=== PATIENT | male | born 1960 | race American Indian/Alaskan Native ===

== ENCOUNTER 2017-03-21 00:55 | Inpatient (IN) | payer MEDICAID, OTHER ==
[2017-03-21 00:56] VITALS: BMI 26.8
--- NOTE | 2017-03-21 01:20 | ED PDOC ---
Psych Transfer Clearance - Clearance Statement Clearance Statement: Reviewed vital signs, lab results and transfer papers. Patient clinically stable for psychiatric admission.
[2017-03-21 01:22] VITALS: O2SAT 98
[2017-03-21] MEDS ORDERED: Alum-Mag Hydrox-Simethicone Susp (30 mL) PO PRN (01:33)
[2017-03-21] MEDS ORDERED: Magnesium Hydroxide Susp 30 ml UD PO PRN (01:33)
[2017-03-21] MEDS ORDERED: DiphenhydrAMINE 50 mg/ml Inj IM PRN (01:33)
[2017-03-21 08:11] LABS: CHOLESTEROL 145 mg/dL (0-199)
--- NOTE | 2017-03-21 10:30 | PCM.PSYCH ---
Initial Psychiatric Evaluation - Initial Psychiatric Evaluation Type of Admission: Voluntary Legal Status: Capacity Chief Complaint (in patient's own words): i've been off my meds Patient's Reaction to Hospitalization: cooperative History of Present Illness and Precipitating Events: 56 yo male with history of heroin, alcohol, cocaine dependence and bipolar disorder. pt presented at [facility] seeking admission for suicidal thoughts in context of ongoing substance abuse. he reports he has not had his medications for over a week- with the exception of zoloft and doxepin. he states he has been feeling impulsive, labile, "up and down" he is with racing thoughts, poor sleep and pressured speech. he states he started smoking cocaine , using 1 bag of heroin iv and then feeling like he's "crashing"- feeling hopeless, having a sense of foreboding and feeling suicidal. he had thoughts to overdose on heroin. he states he has a history of "8 overdoses" he states he does not want to . pt reports he has been dx with prostate cancer about a year ago and never took his treatment. he cites this as a stressor. states he has 3 children and was 25 years and was 2 years ago. 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 his mother is a nurse and is supportive. pt c/o chills, cramps, diarrhea, sweats and shakes now. mild nausea. Current Medications: Active Medications Generic Name Dose Route Start Last Admin Trade Name Freq PRN Reason Stop Dose Admin Acetaminophen 650 mg 03/21/17 01:33 Tylenol 325mg Tab PO Q4 PRN Pain, moderate (4-7) Al Hydrox/Mg Hydrox/Simethicone 30 ml 03/21/17 01:33 Maalox Plus 30 Ml PO Q4 PRN Dyspepsia Clonidine HCl 0.1 mg 03/21/17 09:00 03/21/17 10:15 Catapres PO 03/24/17 09:01 0.1 mg Q8 JE Administration Cyclobenzaprine HCl 10 mg 03/21/17 10:17 Flexeril PO TID PRN Muscle spasm Diphenhydramine HCl 50 mg 03/21/17 01:33 Benadryl IM Q6 PRN Extrapyramidal S/S Unable PO Diphenhydramine HCl 50 mg 03/21/17 01:33 Benadryl PO Q6 PRN Extrapyramidal Symptoms Doxepin HCl 25 mg 03/21/17 22:00 Sinequan PO HS [facility] Folic Acid 1 mg 03/21/17 10:30 Folic Acid PO DAILY [facility] Gabapentin 300 mg 03/21/17 13:00 Neurontin PO TID [facility] Haloperidol 5 mg 03/21/17 01:33 Haldol PO Q4 PRN Agitation Haloperidol Lactate 5 mg 03/21/17 01:33 Haldol IM Q4 PRN Agitation, Unable to Take PO Ibuprofen 800 mg 03/21/17 02:48 Motrin Tab PO 03/24/17 02:48 Q6 PRN Pain, Mild (1-3) Loperamide HCl 2 mg 03/21/17 02:48 Imodium PO Q4 PRN After Loose Bowel Movement Lorazepam 2 mg 03/21/17 01:33 Ativan IM Q4 PRN Anxiety/Agitation,Unable PO Lorazepam 1 mg 03/21/17 01:33 Ativan PO Q4 PRN Anxiety/Agitation Lorazepam 1 mg 03/21/17 17:00 Ativan PO BIDHS [facility] Magnesium Hydroxide 30 ml 03/21/17 01:33 Milk Of Magnesia PO HS PRN Constipation Multivitamins/Minerals 1 tab 03/21/17 10:15 Therapeutic-M Tab PO DAILY [facility] Quetiapine Fumarate 200 mg 03/21/17 22:00 Seroquel PO HS [facility] Sertraline HCl 25 mg 03/21/17 10:15 Zoloft PO DAILY [facility] Thiamine HCl 100 mg 03/21/17 10:30 Vitamin B1 Tab PO DAILY [facility] was taking zoloft 25mg daily, seroquel xr 400mg hs, neurontin 200mg tid and doxepin 75mg hs Past Psychiatric History - Past Psychiatric History Previous Treatment History: Inpatient Prior Professional Help: i've been in rehab many times- last two [facility]. Prior Psychiatric Treatment: [facility] 2014. has outpt providers in [facility] History of Abuse: denies History of ETOH/Drug Use: has been drinking 40ounces of beer + 3 airport bottles of vodka daily. has been using 1 bag of heroin iv. smoking crack dailiy. smokes around 3-4 cigarettes daily. denies other drug use currently. states he started using lsd when he was 11 years old. uds positive for opioids. neg for cocaine History of Family Illness: denies Pertinent Medical Hx (Current Medical&Sleep Prob, Allergies): Allergies Allergy/AdvReac Type Severity Reaction Status Date / Time carbamazepine [From Tegretol] Allergy Verified 03/20/17 17:13 Penicillins Allergy Verified 03/20/17 17:13 watermelon Allergy Verified 03/20/17 17:13 Albuterol Sulfate [Ventolin Hfa] 2 puff PO Q6 PRN 04/24/15 Budesonide/Formoterol Fumarate [Symbicort] 1 aer IH Q6 PRN 04/24/15 Doxepin [Sinequan] 10 mg PO DAILY 04/24/15 Gabapentin 600 mg PO QAM 04/24/15 Insulin Detemir [Levemir] 10 unit SC QAM 04/24/15 QUEtiapine [SEROquel XR] 200 mg PO HS 04/24/15 Gabapentin [Neurontin] 300 mg PO BID #0 cap 05/02/15 Gabapentin [Neurontin] 400 mg PO HS #0 cap 05/02/15 QUEtiapine [Seroquel XR] 400 mg PO HS #0 ter 05/02/15 Sertraline [Zoloft] 150 mg PO DAILY #0 tab 05/02/15 lamoTRIgine [Lamictal] 25 mg PO DAILY #0 tab 05/02/15 Divalproex [Depakote DR] 500 mg PO BID #0 tcp 05/15/15 Gabapentin [Neurontin] 300 mg PO BID #0 cap 05/15/15 Sertraline [Zoloft] 100 mg PO DAILY #0 tab 05/15/15 Sertraline [Zoloft] 100 mg PO DAILY #0 tab 05/15/15 states he has hep c that was treated. states he was dx with type 2 diabetes 2 years ago, but feels its better. he states he has prostate Cancer and has a doctor in [facility]. Review of Systems - Psychiatric Psychiatric: As Per [facility] Mental Status Examination - Personal Presentation Personal Presentation: Looks younger than stated age - Affect Affect: Broad - Motor Activity Motor Activity: Calm - Reliability in Providing Information Reliability in Providing Information: Good - Speech Speech: Other Additional comments: pressured - Mood Mood: Anxious, Euphoric - Formal Thought Process Formal Thought Process: No Impairment - Obsessions/Compulsions Obsessions: No Compulsions: No - Cognitive Functions Orientation: Person, Place, Situation Sensorium: Alert Attention/Concentration: Attentive Estimate of Intelligence: Average Judgement: Intact, as evidence by: Insight regarding need for hospitalization Memory: Recent intact, as evidence by: Ability to recall events of the day, Remote intact, as evidenced by: Abilit to recall sig. life events - Risk Risk: Suicidal (reports he wants to live, history of prior attempts. suicidal thoughts prior to admission), Withdrawal, Diminished functioning - Strength & Assets Inventory Strength & Assets Inventory: Intelligence, Family support - Limitations Limitations: Other (impulsive) DSM 5 DX - DSM 5 DSM 5 Diagnosis: bipolar disorder, mixed cocaine abuse opioid dependence alcohol dependence - Recommended/Plan of Treatment Treatment Recommendations and Plan of Treatment: admit to 3 for safety and observation gather collateral information provide supportive therapy adjust medications- restart home meds and titrate up. will start detox meds prn hospitalist consult - pt wants hiv testing, hx of diabetes, prostate ca disposition planning- t/c referral to inpt rehab Projected ELOS: 3-5 days Prognosis: fair - Smoking Cessation Smoking Cessation Initiated: No Reason for not providing: declines
[2017-03-21] MEDS: Multivitamin With Minerals Tab PO SCH (12:13)
--- NOTE | 2017-03-21 15:31 | CP.PCM.CON ---
History of Present Illness - History of Present Illness History of Present Illness: Hospitalist Consult H&P (Patient was seen and examined at 2:30 PM 03/21/17 [id number] with Psychiatry Nurse) 56 year old male who was admitted to the In-Patient Psychiatry Unit at [facility] for SI after taking cociane and heroin. Currently upon FULL ROS there is NO chest pain, NO palpitations, NO SOB/Cough/ Wheezing,NO dysphagia/odynophagia, NO abdominal pain, NO n/v/d/c, NO black/ bloody stools, NO burning/pain with urination, NO lightheadedness/dizziness, NO paresthesias, NO edema, NO new changes in vision/eye pain, NO new changes in hearing/ear pain PMHx: Cocaine Abuse, Heroin Abuse, Alcohol Abuse, Bipolar Disorder, Prostate CA , Hepatitis C, DM 1 PSHx: Denies ALL: Carbamazepine, PCN, Watermelon Meds: Please see list Social Hx: (+) Alcohol: 40 ounces of beer and "airport" bottles x 3 vodka a day , (+) Illicit Drugs: Crack Cocaine and Heroin 1 bag IV daily, (+) Tobacco: 3 to 4 cigarettes per day Physical Exam: HEENT: NCA, EOMI, PERRLA, NO pharyngeal erythema/exudate, NO thyromegaly, NO cervical/supraclavicular/submandibular lymphadenopathy, Oral Mucosa and Nasal Turbinates are moist Cardio: NS1 and NS2, NO M/R/G Resp: CTA B/L, NO R/R/W GI: BSx4, Soft, NT,ND, NO HSM, NO guarding/rebound tenderness Ext: Pulses are strong and equal, NO edema, Capillary Refill is 2 seconds Neuro: CN II through XII are grossly intact Assessment and Plan: 1). Hx Prostate CA Patient states that he was on oral medication to treat but stopped taking yet when he started to use Heroin and Cocaine He reveals that he is being followed by a Dr. Patel at [facility] and has an appointment scheduled for this Thursday03/23/17 but could not provide contact information for Dr. Patel I went to the [facility] website and the physician's name is Dr. Rhett Patel and he is located at [facility], [address] [place] [address]. Phone number is [phone] I have placed a nursing order for the Psychiatry Nurse to contact Dr. Patel's office on Thursday03/23/17 morning to notify them that patient is admitted to the hospital and that the appointment will have to be rescheduled Patient should also be reminded again of the importance of follow up with Dr. Patel as soon as possible after his discharge from the Psychiatry Unit 2). Hx Hepatitis C Patient states that he was being treated with Harvoni by his PMD Dr. Emery but again stopped after he started doing Heroin and Cocaine Google search revealed the following information for Dr. Ranjana Emery: located at [address] [place] [address] and phone number is [phone] I have stressed to patient the importance of follow up with both Dr. Emery and Dr. Patel Again, nursing order has been placed to provide patient with Dr. Emery's contact information and for patient to follow up as soon as possible after his discharge from the Psychiatry Unit 3). Hx DM 1 Patient states that he was taking Levemir but has not done so for some time now F/U HgBA1C, TSH, T4 Accuchecks 4x/day for now with Regular Insulin Sliding Scale has been ordered for now Diabetic Diet 4). Bipolar Disorder Treatment as Psychiatry 5). Cocaine Abuse Treatment as Psychiatry 6). Opiod Abuse Treatment as Psychiatry 7). Alcohol Dependence Treatment as Psychiatry Past Patient History - Infectious Disease Hx of Infectious Diseases: None - Past Social History Smoking Status: Light Smoker < 10 Cigarettes Daily - CARDIAC Hx Cardiac Disorders: Yes Hx Hypertension: Yes - PULMONARY Hx Asthma: Yes - NEUROLOGICAL Hx Seizures: No - HEENT Hx HEENT Problems: No - RENAL Hx Chronic Kidney Disease: No - ENDOCRINE/METABOLIC Hx Endocrine Disorders: No Hx Diabetes Mellitus Type 2: Yes - HEMATOLOGICAL/ONCOLOGICAL Hx Blood Disorders: No Hx Human Immunodeficiency Virus (HIV): No - INTEGUMENTARY Hx Dermatological Problems: No - MUSCULOSKELETAL/RHEUMATOLOGICAL Hx Musculoskeletal Disorders: No - GASTROINTESTINAL Hx Gastrointestinal Disorders: No - GENITOURINARY/GYNECOLOGICAL Hx Genitourinary Disorders: Yes Hx Prostate Cancer: Yes Hx Sexually Transmitted Disorders: No - PSYCHIATRIC Hx Anxiety: Yes Hx Bipolar Disorder: Yes Hx Depression: Yes Hx Substance Use: Yes - SURGICAL HISTORY Hx Surgeries: Yes (abcess removed from r arm) - ANESTHESIA Hx Anesthesia: Yes (local) Hx Anesthesia Reactions: No Meds Allergies/Adverse Reactions: Allergies Allergy/AdvReac Type Severity Reaction Status Date / Time carbamazepine [From Tegretol] Allergy Verified 03/20/17 17:13 Penicillins Allergy Verified 03/20/17 17:13 watermelon Allergy Verified 03/20/17 17:13 - Medications Medications: Current Medications Acetaminophen (Tylenol 325mg Tab) 650 mg PO Q4 PRN PRN Reason: Pain, moderate (4-7) Al Hydrox/Mg Hydrox/Simethicone (Maalox Plus 30 Ml) 30 ml PO Q4 PRN PRN Reason: Dyspepsia Clonidine HCl (Catapres) 0.1 mg PO Q8 [facility] Stop: 03/24/17 09:01 Last Admin: 03/21/17 10:15 Dose: 0.1 mg Cyclobenzaprine HCl (Flexeril) 10 mg PO TID PRN PRN Reason: Muscle spasm Diphenhydramine HCl (Benadryl) 50 mg IM Q6 PRN PRN Reason: Extrapyramidal S/S Unable PO Diphenhydramine HCl (Benadryl) 50 mg PO Q6 PRN PRN Reason: Extrapyramidal Symptoms Doxepin HCl (Sinequan) 25 mg PO HS [facility] Folic Acid (Folic Acid) 1 mg PO DAILY [facility] Last Admin: 03/21/17 12:13 Dose: 1 mg Gabapentin (Neurontin) 300 mg PO TID [facility] Last Admin: 03/21/17 13:08 Dose: 300 mg Haloperidol (Haldol) 5 mg PO Q4 PRN PRN Reason: Agitation Haloperidol Lactate (Haldol) 5 mg IM Q4 PRN PRN Reason: Agitation, Unable to Take PO Ibuprofen (Motrin Tab) 800 mg PO Q6 PRN PRN Reason: Pain, Mild (1-3) Stop: 03/24/17 02:48 Loperamide HCl (Imodium) 2 mg PO Q4 PRN PRN Reason: After Loose Bowel Movement Lorazepam (Ativan) 2 mg IM Q4 PRN PRN Reason: Anxiety/Agitation,Unable PO Lorazepam (Ativan) 1 mg PO Q4 PRN PRN Reason: Anxiety/Agitation Lorazepam (Ativan) [facility] Magnesium Hydroxide (Milk Of Magnesia) 30 ml PO HS PRN PRN Reason: Constipation Multivitamins/Minerals (Therapeutic-M Tab) 1 tab PO DAILY [facility] Last Admin: 03/21/17 12:13 Dose: 1 tab Ondansetron HCl (Zofran Tab) 4 mg PO Q4 PRN PRN Reason: Nausea/Vomiting Quetiapine Fumarate (Seroquel) 200 mg PO HS [facility] Sertraline HCl (Zoloft) 25 mg PO DAILY [facility] Last Admin: 03/21/17 12:13 Dose: 25 mg Thiamine HCl (Vitamin B1 Tab) 100 mg PO DAILY [facility] Last Admin: 03/21/17 12:13 Dose: 100 mg Results - Vital Signs Recent Vital Signs: Last Vital Signs Temp 97.8 F 03/21/17 09:00 Pulse 80 03/21/17 10:15 Resp 20 03/21/17 09:00 BP 144/96 H 03/21/17 10:15 Pulse Ox 98 03/21/17 01:11 - Labs Labs: Laboratory Results - last 24 hr 03/21/17 06:00 Triglycerides 61 Cholesterol 145 LDL Cholesterol Direct 75 HDL Cholesterol 40
[2017-03-21] MEDS: Insulin Regular 100 units/ml SC SCH ×2 (17:42→21:16)
[2017-03-22] MEDS: Insulin Regular 100 units/ml SC SCH ×4 (08:00→23:27)
[2017-03-22 08:27] LABS: T4 8.52 ug/dl (5.5-11.0)
[2017-03-22 08:41] LABS: THYROID STIMULATING HORMONE 1.06 mIU/ML (0.46-4.68)
[2017-03-22] MEDS: Multivitamin With Minerals Tab PO SCH (08:47)
--- NOTE | 2017-03-22 10:07 | CP.PCM.PCO ---
Physician Communication Note - Physician Communication Note Physician Communication Note: Please see above
--- NOTE | 2017-03-22 12:12 | PCM.PYCHPN ---
Psychiatric Progress Note - Psychiatric Progress Note Patient seen today, length of contact: discussed with team Patient Chief Complaint: i slept like a baby Problems Identified/Issues Discussed: pt visible in milieu, singing nupur Biorasis songs loudly, but is receptive to redirection and pleasant. he is reporting good sleep and no medication side effects. Medication Change: Yes (increase seroquel) Medical Record Reviewed: Yes Mental Status Examination - Cognitive Function Orientation: Person, Place, Situation Memory: Intact Attention: WNL Concentration: WNL Association: WNL Fund of Knowledge: [facility] Decription of patient's judgement and insights: fair - Mood Mood: Anxious, Euphoric - Affect Affect: Broad - Speech Speech: Loud, Pressured - Formal Thought Process Formal Thought Process: No Impairment Psychotic Thoughts and Behaviors: euphoric - Suicidal Ideation Suicidal Ideation: No - Homicidal Ideation Homicidal Ideation: No Goal/Treatment Plan - Goal/Treatment Plan Need for Continued Stay: Remain at risks for inpatient hospitalization, Severe functional impairment Progress Toward Problem(s) and Goals/Treatment Plan: bipolar disorder cocaine, opioid and alcohol dependence will increase seroquel to target sixto disposition planning Estimated Date of D/C: 03/27/17
[2017-03-22] MEDS: Saccharomyces Boulardi 250 mg Cap PO SCH (17:39)
[2017-03-23] MEDS: Insulin Regular 100 units/ml SC SCH ×3 (08:00→17:36)
[2017-03-23] MEDS: Saccharomyces Boulardi 250 mg Cap PO SCH ×2 (09:05→17:34)
[2017-03-23] MEDS: Multivitamin With Minerals Tab PO SCH (09:05)
--- NOTE | 2017-03-23 12:07 | PCM.PYCHPN ---
Psychiatric Progress Note - Psychiatric Progress Note Patient seen today, length of contact: in treatment team Patient Chief Complaint: i feel good doc, can i go this week Problems Identified/Issues Discussed: pt visible in milieu, talkative, less manic today. denies medication side effects. denies withdrawal symptoms. wants to leave soon. Medication Change: Yes (increase seroquel, lower ativan) Medical Record Reviewed: Yes Mental Status Examination - Cognitive Function Orientation: Person, Place, Situation Memory: Intact Attention: WNL Concentration: WNL Association: [facility] Fund of Knowledge: [facility] Decription of patient's judgement and insights: fair - Mood Mood: Anxious, Euphoric - Affect Affect: Broad - Speech Speech: Appropriate - Formal Thought Process Formal Thought Process: No Impairment Psychotic Thoughts and Behaviors: sixto is improving - Suicidal Ideation Suicidal Ideation: No - Homicidal Ideation Homicidal Ideation: No Goal/Treatment Plan - Goal/Treatment Plan Need for Continued Stay: Remain at risks for inpatient hospitalization, Severe functional impairment Progress Toward Problem(s) and Goals/Treatment Plan: bipolar disorder cocaine, opioid and alcohol dependence will increase seroquel to target sixto lower ativan disposition planning- discharge thursday Estimated Date of D/C: 03/27/17
[2017-03-24] MEDS: Multivitamin With Minerals Tab PO SCH (08:34)
[2017-03-24] MEDS: Saccharomyces Boulardi 250 mg Cap PO SCH ×2 (08:34→17:33)
[2017-03-24 08:47] VITALS: RESP 18
--- NOTE | 2017-03-24 13:15 | PCM.PYCHPN ---
Psychiatric Progress Note - Psychiatric Progress Note Patient seen today, length of contact: in treatment team Patient Chief Complaint: i am ready to go tomorrow Problems Identified/Issues Discussed: pt visible in milieu, his speech is no longer pressured. he denies side effects with his medications. he is looking forward to his daughter's graduation next week. he states his sleep is good. Medication Change: No ( ) Medical Record Reviewed: Yes Mental Status Examination - Cognitive Function Orientation: Person, Place, Situation Memory: Intact Attention: WNL Concentration: WNL Association: WN Fund of Knowledge: [facility] Decription of patient's judgement and insights: fair - Mood Mood: Anxious, Euphoric - Affect Affect: Broad - Speech Speech: Appropriate - Formal Thought Process Formal Thought Process: No Impairment Psychotic Thoughts and Behaviors: sixto is improving - Suicidal Ideation Suicidal Ideation: No - Homicidal Ideation Homicidal Ideation: No Goal/Treatment Plan - Goal/Treatment Plan Need for Continued Stay: Remain at risks for inpatient hospitalization, Severe functional impairment Progress Toward Problem(s) and Goals/Treatment Plan: bipolar disorder cocaine, opioid and alcohol dependence will continue seroquel to target mood symptoms ativan is discontinued today discharge tomorrow. Estimated Date of D/C: 03/27/17
[2017-03-24 17:11] VITALS: PULSE 76
[2017-03-25 08:46] VITALS: BP 118/88; TEMP 98.1
[2017-03-25] MEDS: Multivitamin With Minerals Tab PO SCH (09:03)
--- NOTE | 2017-03-25 09:40 | PCM.PYCHDC ---
Mental Status Examination - Mental Status Examination Orientation: Person, Place, Situation, Time Memory: Intact Mood: Neutral Affect: Broad Speech: Appropriate Attention: WNL Concentration: WNL Association: WNL Fund of Knowledge: WNL Formal Thought Process: No Impairment Description of patient's judgement and insight: fair Psychotic Thoughts and Behaviors: denies a/v hallucinations. no loosening of associations Suicidal Ideation: No Current Homicidal Ideation?: No Plan: pt denies any suicidal or homicidal thoughts/plans or intent Discharge Summary - Discharge Note Reason for Hospitalization: pt expressed suicidal thoughts, sixto- was non-adherent with medications and using heroin and alcohol. Psychiatric History (includes Medical, Family, Personal Hx): history of bipolar disorder, cocaine, heroin and alcohol dependence Consultations:: List each consultation separately and include: 1. Reason for request. 2. Findings. 3. Follow-up Consultations: seen by the hospitalist Summary of Hospital Course include:: 1. Description of specific treatment plan utilized for patients during their course of treatmen. 2. Summarize the time- course for resolution of acute symptoms and/or regressed behaviors. 3. Describe issues identified and worked on during hospitalization. 4. Describe medication utilized. 5. Describe medical problems identified and treated. 6. Reassessment of suicide risk Summary of Hospital Course: 56 yo male with history of heroin, alcohol, cocaine dependence and bipolar disorder. pt presented at [facility] seeking admission for suicidal thoughts in context of ongoing substance abuse. he reports he has not had his medications for over a week- with the exception of zoloft and doxepin. he states he has been feeling impulsive, labile, "up and down" he is with racing thoughts, poor sleep and pressured speech. he states he started smoking cocaine , using 1 bag of heroin iv and then feeling like he's "crashing"- feeling hopeless, having a sense of foreboding and feeling suicidal. he had thoughts to overdose on heroin. he states he has a history of "8 overdoses" he states he does not want to . pt reports he has been dx with prostate cancer about a year ago and never took his treatment. he cites this as a stressor. states he has 3 children and was 25 years and was 2 years ago. 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 pt c/o chills, cramps, diarrhea, sweats and shakes now. mild nausea. hospital course: pt was admitted to [facility] and oriented to the unit. pt was placed on routine safety protocols. pt was started back on his home medications and the dosages titrated up to current levels. his mood improved and his sixto subsided. he was focused on returning home and working on his sobriety and taking care of his health issues. he was participating in team. at time of discharge he was denying any suicidal or homicidal thoughts. - Final Diagnosis (DSM 5) Condition upon Discharge: STABLE DSM 5: bipolar disorder alcohol dependence opioid abuse cocaine abuse Disposition: HOME/ ROUTINE Follow-up Treatment Plan: follow up with aftercare appointments as directed take medications as prescribed do not use alcohol, tobacco or other illicit substances call 911 if any suicidal or homicidal thoughts attend AA/NA meetings daily follow up with your medical providers Prescriptions/Medication Reconciliation: Doxepin [Sinequan] 25 mg PO HS #30 cap Doxycycline Hyclate [Doryx] 100 mg PO Q12 11 Days Folic Acid 1 mg PO DAILY #30 tab Gabapentin [Neurontin] 400 mg PO TID #90 cap Multimineral/Multivitamin [Therapeutic-M Tab] 1 tab PO DAILY #30 tab QUEtiapine [SEROquel XR] 400 mg PO HS #30 ter Saccharomyces Boulardi [Florastor] 250 mg PO BID #30 cap Sertraline [Zoloft] 25 mg PO DAILY #30 tab Thiamine [Vitamin B1 Tab] 100 mg PO DAILY #30 tab - Smoking Cessation Smoking Cessation Medication prescribed: No Reason for not providing: does not smoke - Antipsychotic Medications Pt discharged on 2 or more routine antipsychotic medications: No
== END 2017-03-25 11:28 | disposition home or self-care (01) | DRG 430 ==
LOC: H.ER 00:55 → H.PSYCH 01:13
PROVIDERS: ADMIT Psychiatry & Neurology Psychiatry; ATTEND Psychiatry & Neurology Psychiatry
PROC: GZ51ZZZ Individual Psychotherapy, Behavioral (ICD-10-PCS; 2017-03-21)
PROC: GZHZZZZ Group Psychotherapy (ICD-10-PCS; principal; 2017-03-23)
DX: F31.60 Bipolar disorder, current episode mixed, unspecified (principal); C61 Malignant neoplasm of prostate; R45.851 Suicidal ideations; F11.20 Opioid dependence, uncomplicated; I10 Essential (primary) hypertension; L02.512 Cutaneous abscess of left hand; F14.20 Cocaine dependence, uncomplicated; E10.9 Type 1 diabetes mellitus without complications; Z79.4 Long term (current) use of insulin; F10.20 Alcohol dependence, uncomplicated; F17.210 Nicotine dependence, cigarettes, uncomplicated; J45.909 Unspecified asthma, uncomplicated; Z86.19 Personal history of other infectious and parasitic diseases; F10.10 Alcohol abuse, uncomplicated; F32.9 Major depressive disorder, single episode, unspecified; F41.9 Anxiety disorder, unspecified